=== PATIENT | female | born 1945 | race Caucasian/White ===

== ENCOUNTER 2017-07-05 20:36 | Emergency (ER) | payer SELFPAY ==
[~2017-07-05] VITALS: Ht 152.4 cm; Wt 70.0 kg
[2017-07-05 20:50] VITALS: Ht 152.4 cm; Wt 70.0 kg
[2017-07-05] MEDS ORDERED: METOCLOPRAMIDE 10 MG INJ IV STA (21:49)
[2017-07-05] MEDS ORDERED: SOD CHLORIDE 0.9% 1,000 ML IV STA (21:49)
[2017-07-05] MEDS ORDERED: DIPHENHYDRAMINE 50 MG INJ IV ONE (22:00)
[2017-07-05 22:48] LABS: BASOPHILS % 0.2 % (0.0-2.0); EOSINOPHILS # 0.2 10^3/ul (0.0-0.5); EOSINOPHILS % 1.5 % (0.0-7.0); HEMATOCRIT 40.9 % (37.0-47.0); HEMOGLOBIN 13.9 g/dl (12.0-16.0); LYMPHOCYTES # 2.2 10^3/ul (0.8-2.9); LYMPHOCYTES % 21.7 % (15.0-51.0); MEAN CORPUSCULAR HEMOGLOBIN 30.9 pg (29.0-33.0); MEAN CORPUSCULAR VOLUME 90.9 fl (82.0-101.0); MEAN PLATELET VOLUME 11.2 fl (7.4-10.4); MONOCYTE # 0.9 10^3/ul (0.3-0.9); MONOCYTES % 9.1 % (0.0-11.0); NEUTROPHIL # 6.8 10^3/ul (1.6-7.5); NEUTROPHILS % 67.3 % (39.0-77.0); PLATELET COUNT 213 10^3/UL (140-415); RED CELL DISTRIBUTION WIDTH 11.2 % (11.5-14.5); WHITE BLOOD COUNT 10.1 10^3/ul (4.8-10.8)
[2017-07-05 23:06] LABS: ANION GAP 13 (8-16); BLOOD UREA NITROGEN 17 mg/dl (7-20); CALCIUM 9.3 mg/dl (8.4-10.2); CARBON DIOXIDE 30 mmol/L (21-31); CHLORIDE 97 mmol/L (97-110); CREATININE 0.48 mg/dl (0.44-1.00); GLUCOSE 266 mg/dl (70-220); POTASSIUM 4.5 mmol/L (3.5-5.1); SODIUM 135 mmol/L (135-144)
[2017-07-05 23:19] LABS: TROPONIN-I < 0.012 ng/ml (0.00-0.12)
[2017-07-05] MEDS ORDERED: morphine 4 MG/ML VIAL IV STA (23:32)
[2017-07-06] MEDS ORDERED: [UNRECOGNIZED DRUG - CODE] PO (01:06)
[2017-07-06] MEDS ORDERED: SITA100T8 PO (01:11)
--- NOTE | 2017-07-06 01:48 | RADRPT ---
PROCEDURE: CT Brain without contrast. CLINICAL INDICATION: Headache. TECHNIQUE: A CT of the brain was performed on a multislice detector CT scanner utilizing axial sec tions from the skull base through the vertex without contrast. Images were reviewed on a [employer] PACS workstation. Exam CTDlvol = 44 mGy and DLP = 720 mGy-cm. One of the following 3 dose red uction techniques were used: Automated exposure control; adjustment of the mA and/or kV according to patient size; or use of iterative reconstruction technique. DICOM images are available. COMPARISON: None available FINDINGS: There is age appropriate central and peripheral atrophy. There is no midline shift. There is a mil d degree of supratentorial periventricular and subcortical white matter hypodensities. There is no definite acute stroke. There is no mass lesion. There is no intracranial hemorrhage or abnormal ex tra-axial fluid collection. Visualized paranasal sinuses are clear. IMPRESSION: 1. No acute intracranial abnormality. 2. Nonspecific white matter changes most commonly seen with microvascular ischemic disease. RPTAT: HMVK .Jasiel Cardona MD, MD Date Time Electronically viewed and signed by .Jasiel Cardona MD, MD on 07/06/2017 01:47 .K/
[2017-07-06] MEDS ORDERED: KETOROLAC 15 MG INJ IV STA (01:52)
[2017-07-06 02:25] VITALS: BP 136/65; PULSE 76; RESP 18; TEMP 98.7
[2017-07-06 03:55] LABS: ADD UMIC YES; UR ASCORBIC ACID NEGATIVE (NEGATIVE); UR BILIRUBIN (Dip) NEGATIVE (NEGATIVE); UR BLOOD (Dip) 2+ mg/dL (NEGATIVE); UR CLARITY CLEAR (CLEAR); UR COLOR YELLOW (YELLOW); UR GLUCOSE (Dip) 2+ mg/dL (NEGATIVE); UR KETONES (Dip) NEGATIVE (NEGATIVE); UR LEUKOCYTE ESTERASE (Dip) NEGATIVE Leu/ul (NEGATIVE); UR NITRITE (Dip) NEGATIVE (NEGATIVE); UR RBC 3 /HPF (0-5); UR SPECIFIC GRAVITY (Dip) 1.006 (1.003-1.030); UR TOTAL PROTEIN (Dip) NEGATIVE (NEGATIVE); UR UROBILINOGEN (Dip) NEGATIVE (NEGATIVE)
[2017-07-06] MEDS ORDERED: NAPR-688 PO (04:36)
[2017-07-06] MEDS ORDERED: ABCC1C PO (04:36)
[2017-07-06] MEDS ORDERED: HYDR-906 PO (04:36)
--- NOTE | 2017-07-06 04:46 | ERD ---
ER Documentation Chief Complaint Chief Complaint Headache x 4 days, no weakness or dizzines HPI 71-year-old female presents for a headache this began about 4 days. It started gradually got worse. It is not going away with taking Tylenol at home or ibuprofen. She has no neurological deficits. Does feel some mild generalized weakness. Denies nausea or vomiting. She has had no fevers or chills. ROS All systems reviewed and are negative except as per history of present illness. Medications Home Meds Active Scripts Hydrocodone/Acetaminophen ([place] 5-325 Tablet) 1 Each Tablet, 1 EACH PO Q6 for PAIN, #10 TAB Prov:YE MOULTON DO 07/06/17 Naproxen* (Naproxen*) 500 Mg Tablet, 500 MG PO BID Y for PAIN, #20 TAB Prov:YE MOULTON DO 07/06/17 Ufeezbeuioxtk-Gisjdwezwj-Rbwxwygo-Codeine* (Fioricet w/Codeine*) [id number] -30MG Cap, 1 CAP PO Q4H Y for PAIN LEVEL 1-5, #20 CAP Prov:YE MOULTON DO 07/06/17 Reported Medications Sitagliptin* (Januvia*) 100 Mg Tablet, 100 MG PO QAM, #30 TAB 07/06/17 [Metformin/] 500MG/5MG TAB No Conflict Check, 1 TAB PO QAM TAKE 1 TABLET BY MOUTH IN THE MORNING, 500mg/5mg OF METFORMIN/GLIBENCLAMIDA 07/06/17 Allergies Allergies: Coded Allergies: No Known Allergy (Unverified , 07/05/17) PMhx/Soc Hx Miscellaneous Medical Probl: Yes (DM) Hx Alcohol Use: No Hx Substance Use: No Hx Tobacco Use: No Smoking Status: Never smoker Physical Exam Vitals Vital Signs Date Time Temp Pulse Resp B/P Pulse Ox O2 Delivery O2 Flow Rate FiO2 07/06/17 02:25 98.7 76 18 136/65 96 Room Air 07/06/17 00:05 81 17 129/67 93 Room Air 07/05/17 23:36 84 17 177/85 96 Room Air 07/05/17 20:50 98.7 82 20 162/72 99 Physical Exam Const: [] Distress, appears uncomfortable Head: Atraumatic Eyes: Normal Conjunctiva EOMI, PERRLA ENT: Normal External Ears, Nose and Mouth. Neck: Full range of motion..~ No meningismus. Resp: Clear to auscultation bilaterally Cardio: Regular rate and rhythm, no murmurs Skin: No petechiae or rashes Ext: No cyanosis, or edema Neur: Awake and alert and oriented 3, cranial 2 through 12 intact, no cerebellar deficits, normal gait Psych: Normal Mood and Affect Result Diagram: 07/05/17220407/05/172204 Results 24 hrs Laboratory Tests Test 07/05/17 22:05 07/06/17 00:16 White Blood Count 10.110^3/ul Red Blood Count 4.5010^6/ul Hemoglobin 13.9g/dl Hematocrit 40.9% Mean Corpuscular Volume 90.9fl Mean Corpuscular Hemoglobin 30.9pg Mean Corpuscular Hemoglobin Concent 34.0g/dl Red Cell Distribution Width 11.2% Platelet Count 97475^3/UL Mean Platelet Volume 11.2fl Neutrophils % 67.3% Lymphocytes % 21.7% Monocytes % 9.1% Eosinophils % 1.5% Basophils % 0.2% Nucleated Red Blood Cells % 0.0/100WBC Neutrophils # 6.810^3/ul Lymphocytes # 2.210^3/ul Monocytes # 0.910^3/ul Eosinophils # 0.210^3/ul Basophils # 0.010^3/ul Nucleated Red Blood Cells # 0.010^3/ul Sodium Level 135mmol/L Potassium Level 4.5mmol/L Chloride Level 97mmol/L Carbon Dioxide Level 30mmol/L Anion Gap 13 Blood Urea Nitrogen 17mg/dl Creatinine 0.48mg/dl Glucose Level 266mg/dl Lactic Acid Level 1.5mmol/L Calcium Level 9.3mg/dl Troponin I < 0.012ng/ml Urine Color YELLOW Urine Clarity CLEAR Urine pH 6.0 Urine Specific [place] 1.006 Urine Ketones NEGATIVEmg/dL Urine Nitrite NEGATIVEmg/dL Urine Bilirubin NEGATIVEmg/dL Urine Urobilinogen NEGATIVEmg/dL Urine Leukocyte Esterase NEGATIVELeu/ul Urine Microscopic RBC 3/HPF Urine Microscopic WBC 1/HPF Urine Hemoglobin 2+mg/dL Urine Glucose 2+mg/dL Urine Total Protein NEGATIVEmg/dl Current Medications Medications (Trade) Dose Ordered Sig/Chuck Route PRN Reason Start Time Stop Time Status Last Admin Dose Admin Sodium Chloride (NS) 1,000 ml @ 1,000 mls/hr Q1H STAT IV 07/05/17 21:49 07/05/17 22:48 DC 07/05/17 22:03 Metoclopramide HCl (Reglan) 10 mg ONCE STAT IV 07/05/17 21:49 07/05/17 21:52 DC 07/05/17 22:03 Diphenhydramine HCl (Benadryl) 12.5 mg ONCE ONCE IV 07/05/17 22:00 07/05/17 22:01 DC 07/05/17 22:03 Morphine Sulfate (morphine) 4 mg ONCE STAT IV 07/05/17 23:32 07/05/17 23:33 DC 07/05/17 23:36 Ketorolac Tromethamine (Toradol) 15 mg ONCE STAT IV 07/06/17 01:52 07/06/17 02:07 DC 07/06/17 02:38 Procedures/MDM Acute headache and 71-year-old female. I have low concern for subarachnoid hemorrhage because the gradual onset of the headache and negative head CT. Full workup was performed due to patient's age and generalized weakness. Is initially given a headache cocktail of Reglan and Benadryl. This improved the headache but she still had half of the headache. She was then given morphine and Toradol which made a headache much better. No signs of acute cardiac ischemia negative troponin.. No signs of acute infection. Low suspicion for meningitis because patient is afebrile and does not have neck stiffness. White count is normal. I am going to discharge her with instructions to follow-up with a neurologist if he continues having headaches like this. Discharging her with Fioricet, naproxen and a few [place]. Strict return precautions to the ER for any neurological symptoms or return of headache. CT brain interpretation: See no acute process. I see no hemorrhage, no mass- effect, midline shift no skull fractures, no abnormal masses. Date monitor interpretation: I normal sinus rhythm without arrhythmia. Departure Diagnosis: Primary Impression: Generalized weakness Additional Impression: Acute headache Condition: Stable Patient Instructions: Headache, Unspecified Referrals: [facility] YOU HAVE RECEIVED A MEDICAL SCREENING EXAM AND THE RESULTS INDICATE THAT YOU DO NOT HAVE A CONDITION THAT REQUIRES URGENT TREATMENT IN THE EMERGENCY DEPARTMENT. FURTHER EVALUATION AND TREATMENT OF YOUR CONDITION CAN WAIT UNTIL YOU ARE SEEN IN YOUR DOCTORS OFFICE WITHIN THE NEXT 1-2 DAYS. IT IS YOUR RESPONSIBILITY TO MAKE AN APPOINTMENT FOR FOLOW-UP CARE. IF YOU HAVE A PRIMARY DOCTOR --you should call your primary doctor and schedule an appointment IF YOU DO NOT HAVE A PRIMARY DOCTOR YOU CAN CALL OUR PHYSICIAN REFERRAL HOTLINE AT IF YOU CAN NOT AFFORD TO SEE A PHYSICIAN YOU CAN CHOSE FROM THE FOLLOWING FORMERLY [facility] [address] [facility] [address] [facility] [facility] [address] [facility] [address] [facility] [address] [facility] [address] [facility] [facility]. [address] Additional Instructions: Llame al doctor MAANA y danielle jefry ROSALVA PARA DENTRO DE 2-3 ESCOTO. Consigue un referral para un NEUROLOGIST si sigue el dolor. Dgale a la secretaria que nosotros le instruimos hacer esta rosalva.Avise o llame si berg condicin se empeora antes de la rosalva. Regresa aqui si peor o no mejor. YE MOULTON DO Jul 06, 2017 04:46
== END 2017-07-06 05:31 | disposition home or self-care (01) ==
LOC: E/R 20:36 → EDBD 20:36 → E/R 07-06 05:31
DX: R53.1 Weakness (principal); E11.9 Type 2 diabetes mellitus without complications; Z79.84 Long term (current) use of oral hypoglycemic drugs
CPT/HCPCS: 36415; 70450; 80048; 81001; 83605; 84484; 85025; 96374; 96375; 99285; J1200; J1885; J2270; J2765; J7030